=== PATIENT | female | born 1955 | race Two or more races ===

== ENCOUNTER 2024-02-29 13:21 | Outpatient (RCR) | payer OTHER, SELFPAY ==
[2024-02-29 13:43] VITALS: BP 121/67
[2024-02-29] MEDS: RECLAST 100 IV (13:52)
== END 2024-03-01 13:19 | disposition home or self-care (01) ==
LOC: OID 13:21
PROVIDERS: ATTENDING PHYSICIAN Internal Medicine Endocrinology, Diabetes & Metabolism; FAMILY PHYSICIAN Family Medicine
DX: M81.0 Age-related osteoporosis without current pathological fracture (principal)
CPT/HCPCS: 96365; J3489

== ENCOUNTER 2025-03-19 14:13 | Outpatient (RCR) | payer OTHER, SELFPAY ==
[2025-03-19 14:40] VITALS: BP 109/59
[2025-03-19] MEDS: RECLAST 100 IV (15:05)
== END 2025-03-20 11:23 | disposition home or self-care (01) ==
LOC: OID 14:13
PROVIDERS: ATTENDING PHYSICIAN Internal Medicine Endocrinology, Diabetes & Metabolism; FAMILY PHYSICIAN Family Medicine
DX: M81.0 Age-related osteoporosis without current pathological fracture (principal); Z59.6 Low income
CPT/HCPCS: 96365; J3489